=== PATIENT | male | born 1990 | race Caucasian/White ===

== ENCOUNTER → 2019-01-10 | Outpatient (CLI) | payer BC ==
--- NOTE | 2019-01-10 22:32 | XR ---
EXAMINATION TYPE: XR cervical spine limited DATE OF EXAM: 01/10/2019 COMPARISON: NONE HISTORY: Pain TECHNIQUE: Three views are submitted. FINDINGS: The odontoid is intact. There are no compression deformities. The prevertebral soft tissue structur es are within normal limits. Disc spaces preserved. IMPRESSION: 1. No acute process. Consider MRI follow-up if there is concern for disc herniation.
--- NOTE | 2019-01-10 22:42 | XR ---
EXAM TYPE: LUMBAR SPINE X RAY SERIES COMPARISON: NONE HISTORY: Pain TECHNIQUE: 3 views are submitted. FINDINGS: Alignment is anatomic. The pedicles are intact. The transverse processes are intact. There is no s pondylolysis or spondylolisthesis. IMPRESSION: 1. No acute process. If symptoms persist or there is concern for disc herniation correlate with MRI.
--- NOTE | 2019-01-10 22:46 | XR ---
EXAMINATION TYPE: XR shoulder complete RT DATE OF EXAM: 01/10/2019 COMPARISON: NONE HISTORY: Pain TECHNIQUE: Three views are submitted. FINDINGS: The osseous structures are intact. There is no acute fracture or dislocation. The AC joint is is na rrowed. IMPRESSION: 1. Mild AC joint narrowing.
== END | disposition home or self-care (01) ==
LOC: RADXRMAIN 15:41
PROVIDERS: ATTEND Family Medicine
DX: M54.2 Cervicalgia (principal); M51.36 Other intervertebral disc degeneration, lumbar region; M25.811 Other specified joint disorders, right shoulder
CPT/HCPCS: 72040; 72100